=== PATIENT | male | born 1980 | race Caucasian/White ===

== ENCOUNTER 2023-06-06 18:15 | Emergency (ER) | payer BC ==
[2023-06-06] MEDS ORDERED: Ketorolac 30 MG/ML SDV IM ONE (19:23)
[2023-06-06] MEDS ORDERED: Diphtheria,Pertussis(Acell),Tetanus Vaccine 0.5 ML Syringe IM ONE (19:23)
[2023-06-06] MEDS ORDERED: Ciprofloxacin 500 MG Tab PO ONE (19:24)
== END 2023-06-06 20:12 | disposition home or self-care (01) ==
LOC: MW.ED 18:15
DX: S91.332A Puncture wound without foreign body, left foot, initial encounter (principal); S91.312A Laceration without foreign body, left foot, initial encounter; W45.0XXA Nail entering through skin, initial encounter
CPT/HCPCS: 90471; 90715; 96372; 99282; A9270; J1885; 99283